=== PATIENT | female | born 1990 | race Caucasian/White ===

== ENCOUNTER → 2016-08-29 | Outpatient (CLI) | payer OTHER ==
[~2016-08-29] MED LIST: CHOL500014 PO; MYCO500T3 PO; PREN-53 PO; SIRO2TAB PO; SODI4SOL PO; SODI650T PO
== END | disposition home or self-care (01) ==
LOC: CFH 10:05
PROVIDERS: ATTEND Internal Medicine Cardiovascular Disease
DX: I08.1 Rheumatic disorders of both mitral and tricuspid valves (principal); N19 Unspecified kidney failure; Z94.0 Kidney transplant status
CPT/HCPCS: 93306

== ENCOUNTER 2016-10-23 09:13 | Emergency (ER) | payer OTHER ==
[~2016-10-23] VITALS: Ht 170.2 cm; Wt 55.0 kg
[2016-10-23] MEDS ORDERED: DIPHENOXYLATE/ATROPINE TABLET PO STA (09:26)
[2016-10-23] MEDS ORDERED: SODIUM CHLORIDE 0.9% 1,000ML IVBOLUS ONE ×2 (09:30→11:00)
[2016-10-23] MEDS ORDERED: SODIUM CHLORIDE FLUSH 10ML SYR IVF ONE (09:30)
[2016-10-23 10:01] LABS: BLOOD UREA NITROGEN 36 mg/dL (7-18)
[2016-10-23 10:02] LABS: ASPARTATE AMINO TRANSFERASE 10 U/L (15-37)
[2016-10-23 11:44] LABS: PATH.CAST-FLAG NOT PRESENT; SPERM-FLAG NOT PRESENT; SRC-FLAG NOT PRESENT; XTAL-FLAG NOT PRESENT; YLC-FLAG NOT PRESENT
[2016-10-23 13:00] VITALS: BP 124/84
[2016-10-29 16:06] LABS: OVA AND PARASITE EXAM Final report (.)
== END 2016-10-23 13:03 | disposition home or self-care (01) ==
LOC: ED 10:00
DX: E86.0 Dehydration (principal); R19.7 Diarrhea, unspecified; N18.9 Chronic kidney disease, unspecified; Z90.721 Acquired absence of ovaries, unilateral
CPT/HCPCS: 36415; 80053; 81001; 84703; 85025; 87046; 87177; 87209; 87324; 87328; 87329; 87899; 89055; 96360; 96361; 99285; J7030

== ENCOUNTER 2018-07-27 19:22 | Inpatient (IN) | payer OTHER ==
[~2018-07-27] VITALS: Ht 170.2 cm; Wt 62.5 kg
[~2018-07-27 19:22] MED LIST changes: -CHOL500014 PO; +CHOL500045 PO
[2018-07-27] MEDS ORDERED: SODIUM CHLORIDE 0.9% 1,000ML IVBOLUS ONE (19:30)
[2018-07-27] MEDS ORDERED: SODIUM CHLORIDE FLUSH 10ML SYR IVF ONE (19:30)
--- NOTE | 2018-07-27 19:35 | NUR ---
THIS IS A 27 Y/O FEMALE THAT ARRIVES TO THE ED WITH C/O RIGHT LOWER ABD QUADRANT PAIN. PT REPORTS THAT THIS PAIN STARTED OUT OF NOWHERE AND IS CONCERNED IT MAY BE HER APPENDIX SHE DOES NOT HAVE A RIGHT OVARY. PT IS PA AT A [facility]. PTREPORTS LOOSE STOOLS BUT NO DIARREAH. PT CONNECTED TO MONITORS AND CALL LIGHT IN REACH. AWAITING FURTHER ORDERS.
[2018-07-27 19:43] LABS: BASOPHILS # (AUTO) 0.04 x10^3/uL (0-0.1); BASOPHILS % (AUTO) 0 % (0-1); EOSINOPHILS # (AUTO) 0.03 x10^3/uL (0-0.4); EOSINOPHILS % (AUTO) 0 % (1-7); LYMPHOCYTES % (AUTO) 11 % (22-44); MD NO; MEAN CORPUSCULAR HEMOGLOBIN 29.9 pg (27.0-34.8); MEAN CORPUSCULAR HGB CONC 33.3 g/dL (32.4-35.8); MEAN CORPUSCULAR VOLUME 89.7 fL (80-100); MEAN PLATELET VOLUME 8.9 fL (7.4-10.4); MONOCYTES # (AUTO) 0.65 x10^3/uL (0.2-0.8); MONOCYTES % (AUTO) 5 % (2-9); NEUTROPHILS # (AUTO) 10.33 x10^3/uL (1.8-6.8); NEUTROPHILS % (AUTO) 83 % (42-75); PLATELET COUNT 249 x10^3/uL (130-400); RED BLOOD COUNT 3.74 x10^6/uL (3.82-5.3); RED CELL DISTRIBUTION WIDTH 13.1 % (9.6-15.2)
[2018-07-27 19:49] LABS: ALBUMIN 3.3 g/dL (3.4-5.0); ANION GAP 6 mmol/L (5-15); CHLORIDE 112 mmol/L (98-107); CREATININE 2.46 mg/dL (0.55-1.02)
--- NOTE | 2018-07-27 20:10 | NUR ---
PIV FLUIDS STARTED AND UA SENT TO LAB.
--- NOTE | 2018-07-27 20:27 | NUR ---
PT RESTING IN ROOM AT THIS TIME. VSS PT REPORTING INCREASE IN PAIN. PT TO HAVE 2MG MORPHINE.
[2018-07-27] MEDS ORDERED: MORPHINE SULFATE 4 MG/ML, 1ML ONE (20:29)
[2018-07-27] MEDS ORDERED: ONDANSETRON 2MG/ML, 2ML ONE ×2 (20:29→21:54)
[2018-07-27] MEDS ORDERED: morphine SULFATE 10 MG/ML, 1ML IVPush ONE (20:30)
[2018-07-27] MEDS ORDERED: ONDANSETRON 2MG/ML, 2ML IVPush ONE (20:30)
[2018-07-27 20:35] LABS: MICROSCOPIC AUTO
[2018-07-27 20:39] LABS: CULTURE INDICATED? YES
--- NOTE | 2018-07-27 21:11 | NUR ---
ABX STARTED AT THIS TIME.
[2018-07-27] MEDS ORDERED: BUPIVACAINE/PF-EPI 0.5% 1:200K ONE (21:29)
[2018-07-27] MEDS ORDERED: AMPICILLIN/SULBACTAM 3 GM in SODIUM CHLORIDE 0.9% 100 ML IV ONE (21:30)
[2018-07-27] MEDS ORDERED: MIDAZOLAM 1 MG/ML, 2ML ONE (21:49)
[2018-07-27] MEDS ORDERED: FENTANYL PF 250 MCG/5ML ONE (21:49)
[2018-07-27] MEDS ORDERED: SUCCINYLCHOLINE 20 MG/ML, 10ML ONE (21:52)
[2018-07-27] MEDS ORDERED: DEXAMETHASONE 4 MG/ML, 1ML ONE (21:54)
[2018-07-27] MEDS ORDERED: ROCURONIUM 10MG/ML,5ML ONE (21:55)
[2018-07-27] MEDS ORDERED: PROPOFOL 10 MG/ML, 20ML ONE (21:55)
[2018-07-27] MEDS ORDERED: BUPIVACAINE/PF-EPI 0.5% 1:200K INFIL ONE (22:31)
[2018-07-27] MEDS ORDERED: SUGAMMADEX 200 MG/2 ML IVPush ONE (22:49)
[2018-07-27] MEDS ORDERED: FENTANYL PF 100 MCG/2ML IV PRN (23:00)
[2018-07-27] MEDS ORDERED: PROMETHAZINE 12.5 MG SUPP PR PRN (23:00)
[2018-07-27] MEDS ORDERED: LABETALOL 5MG/ML, 20ML IV PRN (23:00)
[2018-07-27] MEDS ORDERED: ONDANSETRON ODT 8 MG PO PRN (23:00)
[2018-07-27] MEDS ORDERED: HYDROmorphone 2 MG/ML, 1ML IVPush PRN (23:00)
[2018-07-27] MEDS ORDERED: MEPERIDINE/PF 25MG/0.5ML IVPush PRN (23:00)
[2018-07-27] MEDS ORDERED: ONDANSETRON 2MG/ML, 2ML IV PRN (23:00)
[2018-07-27] MEDS ORDERED: MORPHINE SULFATE 4 MG/ML, 1ML IVPush PRN (23:00)
[2018-07-27] MEDS ORDERED: DIAZEPAM 5 MG/ML, 2ML IVPush PRN (23:00)
[2018-07-27] MEDS ORDERED: ALBUTEROL SULFATE 2.5 MG/3 ML NPPB PRN (23:00)
[2018-07-27] MEDS ORDERED: HALOPERIDOL 5 MG/ML IV PRN (23:00)
[2018-07-27] MEDS ORDERED: OXYcodone 5 MG/5 ML ORAL.SOL UDC PO PRN (23:00)
[2018-07-27] MEDS ORDERED: EPHEDRINE 50 MG/ML, 1ML IVPush PRN (23:00)
[2018-07-27] MEDS ORDERED: MIDAZOLAM 1 MG/ML, 2ML IV PRN (23:00)
[2018-07-27] MEDS ORDERED: PROMETHAZINE 25 MG/ML, 1ML IV PRN (23:00)
[2018-07-27] MEDS ORDERED: ACETAMINOPHEN 325 MG TABLET PO PRN (23:00)
[2018-07-27] MEDS ORDERED: hydrALAzine 20 MG/ML, 1ML IV PRN (23:00)
[2018-07-27] MEDS ORDERED: OXYcodone 5 MG/5 ML ORAL.SOL UDC ONE (23:09)
[2018-07-27] MEDS ORDERED: MEPERIDINE/PF 25MG/ML,1ML ONE (23:09)
[2018-07-27 23:45] VITALS: BP 110/75
[2018-07-28] MEDS ORDERED: ONDANSETRON 2MG/ML, 2ML IV PRN (00:30)
[2018-07-28] MEDS ORDERED: HYDROcodone/APAP 5/325 TABLET PO PRN (00:30)
[2018-07-28] MEDS ORDERED: SODIUM CHLORIDE 0.9%, 500ML IV PRN (00:30)
[2018-07-28] MEDS ORDERED: TACR1CAP4 PO (00:50)
[2018-07-28] MEDS ORDERED: AZAT50TA20 PO (00:50)
[2018-07-28] MEDS ORDERED: NORE1TAB11 PO (00:54)
[2018-07-28] MEDS ORDERED: IRBE300T16 PO (00:54)
[2018-07-28] MEDS ORDERED: AMLO2.5T2 PO (00:54)
[2018-07-28] MEDS: HEPARIN 5,000 UNITS/ML, 1ML SQ SCH ×2 (02:28→09:57)
[2018-07-28 04:00] VITALS: BP 130/85
[2018-07-28] MEDS ORDERED: AMPICILLIN/SULBACTAM 3 GM in SODIUM CHLORIDE 0.9% 100 ML IV SCH (05:00)
[2018-07-28] MEDS: SODIUM CHLORIDE 0.9% 1,000 ML IV SCH ×2 (05:39→09:57)
[2018-07-28] MEDS: morphine SULFATE 10 MG/ML, 1ML IV PRN ×2 (05:39→08:10)
[2018-07-28 05:45] LABS: MEAN CORPUSCULAR HEMOGLOBIN 31.3 pg (27.0-34.8); MEAN CORPUSCULAR HGB CONC 35.3 g/dL (32.4-35.8); MEAN CORPUSCULAR VOLUME 88.6 fL (80-100); MEAN PLATELET VOLUME 9.2 fL (7.4-10.4); PLATELET COUNT 198 x10^3/uL (130-400); RED BLOOD COUNT 3.18 x10^6/uL (3.82-5.3); RED CELL DISTRIBUTION WIDTH 13.3 % (9.6-15.2)
[2018-07-28 05:58] LABS: ALBUMIN 2.8 g/dL (3.4-5.0); ANION GAP 5 mmol/L (5-15); CALCIUM 7.6 mg/dL (8.5-10.1); CHLORIDE 115 mmol/L (98-107)
[2018-07-28 06:01] LABS: CREATININE 2.29 mg/dL (0.55-1.02)
[2018-07-28 06:07] LABS: BASOPHILS % (AUTO) 0 % (0-1); EOSINOPHILS % (AUTO) 0 % (1-7); LYMPHOCYTES # (AUTO) 0.56 x10^3/uL (1-3.4); LYMPHOCYTES % (AUTO) 4 % (22-44); MD SCAN; MONOCYTES % (AUTO) 1 % (2-9); NEUTROPHILS # (AUTO) 12.61 x10^3/uL (1.8-6.8); NEUTROPHILS % (AUTO) 95 % (42-75)
[2018-07-28 07:29] VITALS: BP 108/74
[2018-07-28] MEDS ORDERED: HYDR-3240 PO (09:27)
[2018-07-28] MEDS ORDERED: DOCU-131 PO (09:28)
[2018-07-28] MEDS ORDERED: ONDA4TAB13 PO (09:29)
== END 2018-07-28 10:35 | disposition home or self-care (01) | DRG 342 ==
LOC: ED 21:19 → EDIP 21:20 → 4NOR 23:46 → DCLOUNGE 07-28 10:22
PROVIDERS: ADMIT Surgery; ATTEND Surgery
PROC: 0DTJ4ZZ Resection of Appendix, Percutaneous Endoscopic Approach (ICD-10-PCS; principal; 2018-07-27 22:00)
DX: K35.80 Unspecified acute appendicitis (principal); Z94.0 Kidney transplant status; Z90.721 Acquired absence of ovaries, unilateral; I10 Essential (primary) hypertension; N26.1 Atrophy of kidney (terminal); Z88.6 Allergy status to analgesic agent
CPT/HCPCS: 36415; 74176; 80048; 81001; 82040; 84703; 85025; 87086; 88304; 96361; 96374; 96375; 99285; G0378; J0295; J1100; J1644; J2175; J2250; J2405; J2704; J3010; J0330; J2270; J7030

== ENCOUNTER → 2018-10-31 | Outpatient (CLI) | payer OTHER ==
[~2018-10-31] MED LIST changes: +AMLO2.5T2 PO; +AZAT50TA20 PO; +DOCU-131 PO; +HYDR-3240 PO; +IRBE300T16 PO; +NORE1TAB11 PO; +ONDA4TAB13 PO; +TACR1CAP4 PO
[2018-10-31 16:11] LABS: MICROSCOPIC AUTO
== END | disposition home or self-care (01) ==
LOC: LAB 15:42
PROVIDERS: ATTEND Emergency Medicine
DX: R30.0 Dysuria (principal)
CPT/HCPCS: 81001; 87077; 87086; 87186

== ENCOUNTER 2018-11-30 10:14 | Outpatient (CLI) | payer OTHER | END 2018-11-30 23:59 | disposition home or self-care (01) | LOC: CFH 10:14 | PROVIDERS: ATTEND Internal Medicine Nephrology | DX: I12.9 Hypertensive chronic kidney disease with stage 1 through stage 4 chronic kidney disease, or unspecified chronic kidney disease (principal); N18.3 Chronic kidney disease, stage 3 (moderate); Z94.0 Kidney transplant status | CPT/HCPCS: 76776 ==

== ENCOUNTER 2019-11-27 18:17 | Emergency (ER) | payer OTHER ==
[~2019-11-27] VITALS: Ht 167.6 cm; Wt 56.0 kg
[~2019-11-27 18:17] MED LIST changes: -IRBE300T16 PO; +IRBE300T8 PO; -TACR1CAP4 PO; +TACR1CAP5 PO
[2019-11-27] MEDS ORDERED: SODIUM CHLORIDE FLUSH 10ML SYR IVF ONE (18:30)
[2019-11-27] MEDS ORDERED: CEFTRIAXONE PMX 1GM/50ML 50 ML IVPB ONE (18:30)
[2019-11-27] MEDS ORDERED: SODIUM CHLORIDE 0.9% 1,000ML IVBOLUS ONE (18:30)
[2019-11-27] MEDS ORDERED: CEFTRIAXONE PMX 1GM/50ML 50 ML ONE (18:34)
[2019-11-27 18:42] LABS: BASOPHILS # (AUTO) 0.03 x10^3/uL (0-0.1); BASOPHILS % (AUTO) 0 % (0-1); EOSINOPHILS # (AUTO) 0.06 x10^3/uL (0-0.4); EOSINOPHILS % (AUTO) 1 % (1-7); LYMPHOCYTES # (AUTO) 2.62 x10^3/uL (1-3.4); LYMPHOCYTES % (AUTO) 23 % (22-44); MD NO; MEAN CORPUSCULAR HEMOGLOBIN 33.9 pg (27.0-34.8); MEAN CORPUSCULAR HGB CONC 34.5 g/dL (32.4-35.8); MEAN CORPUSCULAR VOLUME 98.2 fL (80-100); MEAN PLATELET VOLUME 9.4 fL (7.4-10.4); MONOCYTES # (AUTO) 0.61 x10^3/uL (0.2-0.8); MONOCYTES % (AUTO) 5 % (2-9); NEUTROPHILS # (AUTO) 8.31 x10^3/uL (1.8-6.8); NEUTROPHILS % (AUTO) 72 % (42-75); PLATELET COUNT 278 x10^3/uL (130-400); RED BLOOD COUNT 3.63 x10^6/uL (3.82-5.3); RED CELL DISTRIBUTION WIDTH 13.8 % (9.6-15.2)
[2019-11-27 18:48] VITALS: BP 138/96
[2019-11-27 18:53] LABS: ALANINE AMINOTRANSFERASE 21 U/L (12-78); ALBUMIN 3.7 g/dL (3.4-5.0); ANION GAP 7 mmol/L (5-15); CALCIUM 9.2 mg/dL (8.5-10.1); CHLORIDE 111 mmol/L (98-107); CREATININE 2.66 mg/dL (0.55-1.02)
[2019-11-27 18:55] LABS: ALKALINE PHOSPHATASE 36 U/L (45-117); BILIRUBIN,TOTAL 0.7 mg/dL (0.2-1.0); TOTAL PROTEIN 7.1 g/dL (6.4-8.2)
--- NOTE | 2019-11-27 18:59 | NUR ---
RECEIVED BEDSIDE REPORT FROM ALLA LAIRD.
[2019-11-27 19:10] LABS: MICROSCOPIC INDICATED
== END 2019-11-27 19:30 | disposition home or self-care (01) ==
LOC: ED 18:30
DX: N39.0 Urinary tract infection, site not specified (principal); N18.9 Chronic kidney disease, unspecified; Z90.721 Acquired absence of ovaries, unilateral
CPT/HCPCS: 36415; 76776; 80053; 81001; 83605; 85025; 87040; 87086; 96374; 99284; J0696; J7030

== ENCOUNTER → 2020-01-02 | Outpatient (CLI) | payer OTHER | END | disposition home or self-care (01) | LOC: LAB 19:32 | PROVIDERS: ATTEND Emergency Medicine | DX: Z01.818 Encounter for other preprocedural examination (principal); Z11.59 Encounter for screening for other viral diseases | CPT/HCPCS: 87635 ==